=== PATIENT | female | born 1975 | race Caucasian/White ===

== ENCOUNTER 2016-10-28 15:27 | Emergency (ER) | payer OTHER ==
[~2016-10-28] VITALS: Ht 154.9 cm; Wt 49.0 kg
[~2016-10-28 15:27] MED LIST: BUPR150XL PO; CETI10 PO; FLUO10TA PO; GABA300C5 PO; OMEP40CA2 PO; TEMA30CA PO; TRAM50TA PO
[2016-10-28 15:31] VITALS: BP 125/81; PULSE 76; RESP 15; TEMP 97.5; O2SAT 97
[2016-10-28] MEDS ORDERED: CETI10 PO (15:57)
[2016-10-28] MEDS ORDERED: ONDANSETRON HCL 4 MG/2 ML VIAL IV PUSH ONE (16:15)
[2016-10-28] MEDS ORDERED: SODIUM CHLOR 0.9% 1000 ML INJ 1,000 ML IV ONE ×2 (16:15→17:45)
--- NOTE | 2016-10-28 16:16 | PD ---
HPI . "Can't keep anything down" Chief Complaint: GI Complaint Time Seen by Provider: 16:12 Travel History International Travel<30 days: No Contact w/Intl Traveler<30days: No Traveled to known affect area: No History of Present Illness HPI 40 year old female presents complaining of vomiting. Onset was on Sunday. Patient has a history of reflux and says it was been worsening over the course of this week. Reports epigastric pain which she describes as severe heartburn and rates the pain as a 6/10. She saw her doctor on who sent her some prilosec. This has not relieved her symptoms. Reports vomiting anytime she eats. She reports feeling lightheaded and frequent burping. Denies any fevers. PFSH Past Medical History Blood Disorders: Yes (BLOOD CLOT LEFT ARM 10 YEARS AGO) Anxiety: Yes Depression: Yes Diminished Hearing: No Hepatitis: Yes (C) Reproductive: Yes (RIGHT OVARIAN CYST) Immunizations Current: Yes ?: Not LMP: ABLATION : 1 Para: 0 Miscarriage: 0 : 1 Ovarian Cysts: Yes (LAP SURG ON CYSTS) Past Surgical History Gynecologic Surgery: Yes (lap for cysts) Hysterectomy: No Other Surgery: Yes (numerous laproscopic abd. assessments) Social History Alcohol Use: No Tobacco Use: No (DENIES) Substance Use: No Allergies-Medications (Allergen,Severity, Reaction): Coded Allergies: Sulfa (Verified Allergy, Severe, Nausea/Vomiting, 10/28/16) Cipro (Verified Adverse Reaction, Mild, VOMITING, 10/28/16) Reported Meds & Prescriptions Reported Meds & Active Scripts Active Ondansetron (Ondansetron HCl) 8 Mg Tab 8 Mg PO TID Fluoxetine (Fluoxetine HCl) 10 Mg Tab 10 Mg PO DAILY Tramadol (Tramadol HCl) 50 Mg Tab 50 Mg PO Q4H PRN Omeprazole 40 Mg Cap 40 Mg PO DAILY Temazepam 30 Mg Cap 30 Mg PO HS PRN Gabapentin 300 Mg Cap 300 Mg PO TID Reported Cetirizine (Cetirizine HCl) 10 Mg Tab 10 Mg PO DAILY Review of Systems Except as stated in HPI: all other systems reviewed are Neg General / Constitutional: No: Fever, Chills, Weight Loss Gastrointestinal: Positive: Nausea, Vomiting, Abdominal Pain Genitourinary: No: Urgency, Frequency, Dysuria Neurologic: Positive: Weakness Physical Exam Narrative GENERAL: Awake and alert female in no acute distress. Fidgets a lot. SKIN: Warm and dry. HEAD: Atraumatic. Normocephalic. EYES: Pupils equal and round. Extraocular eye movements intact. Dark circles under her eyes. ENT: No nasal bleeding or discharge. Mucous membranes pink and moist. NECK: Trachea midline. Neck supple. CARDIOVASCULAR: Regular rate and rhythm. No murmurs. RESPIRATORY: No accessory muscle use. Lungs clear to auscultation bilaterally. No wheezing. GASTROINTESTINAL: Abdomen soft, non-tender, nondistended. MUSCULOSKELETAL: No obvious deformities. No edema. NEUROLOGICAL: Awake and alert. No obvious cranial nerve deficits. Motor grossly within normal limits. Normal speech. PSYCHIATRIC: Appropriate mood and affect; insight and judgment normal. Data Data Last Documented VS Vital Signs Date Time Temp Pulse Resp B/P Pulse Ox O2 Delivery O2 Flow Rate FiO2 10/28/16 17:10 63 16 109/72 99 10/28/16 15:31 97.5 Orders Ondansetron Inj (Zofran Inj) (10/28/16 16:15) Sodium Chlor 0.9% 1000 Ml Inj (Ns 1000 M (10/28/16 16:15) Pantoprazole Inj (Protonix Inj) (10/28/16 16:45) Ed Urine Pregnancytest Poc (10/28/16 16:45) Sodium Chlor 0.9% 1000 Ml Inj (Ns 1000 M (10/28/16 17:45) MDM Medical Decision Making Medical Screen Exam Complete: Yes Emergency Medical Condition: Yes Medical Record Reviewed: Yes (this patient is followed closely by her primary care provider for depression, chronic low back pain and insomnia.) Differential Diagnosis Differentials include but are not limited to gastroenteritis, gastritis, peptic ulcer, GERD. Narrative Course Patient presents with vomiting for 3 days. She reports a history of reflux and reports associated epigastric pain which she describes as heartburn. She recently saw her PCP who gave her some Prilosec but that has not helped. Patient will be given IV fluids, zofran and Protonix and reassessed. She reported some improvement after these. Diagnosis Primary Impression: Vomiting Qualified Code: R11.2 - Non-intractable vomiting with nausea, unspecified vomiting type Additional Impression: Acid reflux Qualified Code: K21.9 - Gastroesophageal reflux disease, esophagitis presence not specified Patient Instructions: Acute Nausea and Vomiting (ED), Gastroesophageal Reflux Disease (ED), General Instructions Med/Other Pt SpecificInfo: Prescription(s) given Scripts Ondansetron 8 Mg Tab8 Mg PO TID #10 TAB Ref 0 Prov:Irina Babb MD 10/28/16 Disposition: 01 DISCHARGE HOME Condition: Stable Irina Babb MD Oct 28, 2016 16:16
[2016-10-28] MEDS ORDERED: PANTOPRAZOLE SODIUM 40 MG VIAL IV PUSH ONE (16:45)
[2016-10-28 17:10] VITALS: BP 109/72; PULSE 63; RESP 16; O2SAT 99
[2016-10-28 18:10] VITALS: BP 106/72; PULSE 69; RESP 16; O2SAT 98
[2016-10-28] MEDS ORDERED: ONDA1TAB17 PO (18:35)
[2016-10-28 19:10] VITALS: BP 98/59
== END 2016-10-28 19:36 | disposition home or self-care (01) ==
LOC: PHED 15:27
DX: R11.2 Nausea with vomiting, unspecified (principal); K21.9 Gastro-esophageal reflux disease without esophagitis
CPT/HCPCS: 84703; 96361; 96374; 96375; 99284; C9113; J2405; J7030

== ENCOUNTER 2017-03-10 11:39 | Emergency (ER) | payer OTHER ==
[~2017-03-10] VITALS: Ht 154.9 cm; Wt 50.8 kg
[~2017-03-10 11:39] MED LIST changes: +ADDE20XR PO; -BUPR150XL PO; +CLON.5 PO; -FLUO10TA PO; +LEXA20TA PO; +ONDA8TAB7 PO; -TEMA30CA PO
[2017-03-10 11:47] VITALS: BP 106/65; PULSE 97; RESP 16; TEMP 97.6; O2SAT 97
[2017-03-10 12:06] LABS: BLOOD, URINE NEG (NEG); GLUCOSE,URINE NEG (NEG); KETONE, URINE TRACE mg/dL (NEG); NITRITE,URINE POS (NEG)
[2017-03-10 12:07] LABS: METHOD OF COLLECTION CLEAN CATCH; URINE COLOR YELLOW (YELLW/STRAW)
[2017-03-10 12:11] LABS: BACTERIA, URINE MOD /hpf; COMMENT (UR) CULTURE INDICATED; COMMENT2 (UR) MUCOUS PRESENT; CULTURE IF INDICATED CULTURE INDICATED; SQUAMOUS EPITHELIAL CELL URINE 0-5 /hpf (0-5)
[2017-03-10] MEDS ORDERED: TRAM50TA PO (12:26)
--- NOTE | 2017-03-10 12:47 | PD ---
HPI Chief Complaint: Complaint Time Seen by Provider: 12:56 Travel History International Travel<30 days: No Contact w/Intl Traveler<30days: No Traveled to known affect area: No History of Present Illness HPI 41-year-old female here with dysuria and frequency 5 days. She denies fever or chills. She reports symptoms are similar to her previous UTIs. She denies abdominal pain, flank pain, nausea vomiting or diarrhea. He denies vaginal discharge. Severity is mild. Symptoms are relieved with OTC Azo. PFSH Past Medical History Blood Disorders: Yes (BLOOD CLOT LEFT ARM 10 YEARS AGO) Anxiety: Yes Depression: Yes Diminished Hearing: No Hepatitis: Yes (C) Reproductive: Yes (RIGHT OVARIAN CYST) Immunizations Current: Yes Tetanus Vaccination: Unknown Influenza Vaccination: Yes ?: Not LMP: no menses, STATES HAD UTERINE ABLASION : 1 Para: 0 Miscarriage: 0 : 1 Ovarian Cysts: Yes (LAP SURG ON CYSTS) Past Surgical History Gynecologic Surgery: Yes (lap for cysts) Hysterectomy: No Other Surgery: Yes (numerous laproscopic abd. assessments) Social History Alcohol Use: No Tobacco Use: Yes (STATES QUIT SMOKING 6 MONTHS AGO, NOW "VAPES") Substance Use: No Allergies-Medications (Allergen,Severity, Reaction): Coded Allergies: Sulfa (Sulfonamide Antibiotics) (Verified Allergy, Severe, Nausea/Vomiting , 03/10/17) nitrofurantoin (Verified Allergy, Severe, n/v, 03/10/17) ciprofloxacin (Verified Adverse Reaction, Mild, VOMITING, 03/10/17) Reported Meds & Prescriptions Reported Meds & Active Scripts Active Keflex (Cephalexin) 500 Mg Cap 500 Mg PO Q12H 7 Days Klonopin (Clonazepam) 0.5 Mg Tab 0.5 Mg PO BID Adderall Xr 24 HR (Amphetamine/Dextroamphetamine) 20 Mg Cap 20 Mg PO DAILY Once daily in the morning. Lexapro (Escitalopram Oxalate) 20 Mg Tab 20 Mg PO DAILY Gabapentin 300 Mg Cap 300 Mg PO TID Reported Tramadol (Tramadol HCl) 50 Mg Tab 50 Mg PO BID PRN Cetirizine (Cetirizine HCl) 10 Mg Tab 10 Mg PO DAILY Review of Systems Except as stated in HPI: all other systems reviewed are Neg Genitourinary: Positive: Urgency, Frequency, Dysuria Physical Exam Narrative GENERAL: Well-nourished, well-developed patient. SKIN: Focused skin assessment warm/dry. HEAD: Normocephalic. EYES: No scleral icterus. No injection or drainage. CARDIOVASCULAR: Regular rate and rhythm without murmurs, gallops, or rubs. RESPIRATORY: Breath sounds equal bilaterally. No accessory muscle use. GASTROINTESTINAL: Abdomen soft, non-tender, nondistended. BACK: Nontender without obvious deformity. No CVA tenderness. Data Data Last Documented VS Vital Signs Date Time Temp Pulse Resp B/P (MAP) Pulse Ox O2 Delivery O2 Flow Rate FiO2 03/10/17 11:47 97.6 97 16 106/65 (79 97 Orders Orders Urinalysis - C+S If Indicated (03/10/17 11:52) Urine Culture (03/10/17 12:00) Ed Discharge Order (03/10/17 12:57) Labs Laboratory Tests Test 03/10/17 12:00 Urine Collection Type CLEAN CATCH Urine Color YELLOW Urine Turbidity SLIGHT Urine pH 6.0 Urine Specific [place] 1.026 Urine Protein NEG mg/dL Urine Glucose (UA) NEG mg/dL Urine Ketones TRACE mg/dL Urine Occult Blood NEG Urine Nitrite POS Urine Bilirubin NEG Urine Leukocyte Esterase LARGE Urine WBC 25-49 /hpf Urine WBC Clumps FEW Urine Squamous Epithelial Cells 0-5 /hpf Urine Amorphous Sediment FEW Urine Bacteria MOD /hpf Microscopic Urinalysis Comment CULTURE INDICATED Urine Collection Time 1200 MDM Medical Decision Making Medical Screen Exam Complete: Yes Emergency Medical Condition: Yes Interpretation(s) UA is positive for leukocyte Estrace, nitrates, bacteria Differential Diagnosis UTI, cystitis, pyelonephritis Narrative Course 41 no old female with dysuria and frequency 5 days. She denies fever or chills. He is nontoxic appearing and her vital signs are stable. Her UA is is that of her infection. Patient be treated with Keflex. Diagnosis Primary Impression: UTI (urinary tract infection) Qualified Codes: N30.00 - Acute cystitis without hematuria Referrals: Primary Care Physician Additional Instructions: Take the antibiotics as prescribed. Drink plenty of fluids to stay well hydrated. Follow-up with her primary doctor. Return if he developed new or worsening symptoms. Scripts Cephalexin (Keflex) 500 Mg Cap 500 MG PO Q12H for Infection for 7 Days, #14 CAP 0 Refills Prov: Nickie Lyons 03/10/17 Disposition: 01 DISCHARGE HOME Condition: Stable Nickie Lyons Mar 10, 2017 12:47
[2017-03-10] MEDS ORDERED: CEPH-460 PO (12:53)
[2017-03-14] MEDS ORDERED: TRAM50TA PO (10:36)
[2017-03-14] MEDS ORDERED: ADDE20XR PO (10:36)
== END 2017-03-10 13:15 | disposition home or self-care (01) ==
LOC: PHEFT 11:39
DX: N30.00 Acute cystitis without hematuria (principal); B96.20 Unspecified Escherichia coli [E. coli] as the cause of diseases classified elsewhere; Z16.11 Resistance to penicillins; B96.4 Proteus (mirabilis) (morganii) as the cause of diseases classified elsewhere; Z16.29 Resistance to other single specified antibiotic; Z87.891 Personal history of nicotine dependence
CPT/HCPCS: 81001; 87077; 87086; 87186; 99283